=== PATIENT | female | born 1990 | race Two or more races ===

== ENCOUNTER 2025-02-06 08:50 | Emergency (ER) | payer MEDICAID, SELFPAY ==
[2025-02-06 09:00] VITALS: BP 146/84; PULSE 96; RESP 18; TEMP 36.7; O2SAT 96; BMI 31.2
--- NOTE | 2025-02-06 09:06 | XR_ITS ---
Examination: OB Transvaginal ultrasound of the pelvis, complete Technique: Transvaginal sonographic images pelvis performed using fraire scale imaging Exam date and time: February 06, 2025 at 0954 hours INDICATIONS: Vaginal bleeding today. Findings: Uterus 10.5 cm, pole 0.5 cm correspondences 6 weeks 1 day gestational age Cardiac motion 126 BPM Right ovary 2.3 cm arterial flow Left ovary obscured by bowel gas Impression: Viable intrauterine gestation 6 weeks 1 day
--- NOTE | 2025-02-06 09:10 | PD.EDPREG ---
ED OB Contraction Preg RMI/HPI General Chief complaint: OB/Uterine Contractions Stated complaint: PREG 2+ WKS, BLEEDING SINCE YESTERDAY Time Seen by Provider: 02/06/25 08:58 Arrival date/time: 02/06/25 08:50 34-year-old female presents to the emergency department today stating that she has been having vaginal bleeding since yesterday patient reports that she is . Patient does not know how far along she has. Patient reports no dysuria no fever no nausea no vomiting no back pain Limitations: no limitations Related Data Allergies Allergy/AdvReac Type Severity Reaction Status Date / Time No Known Allergies Allergy Verified 02/06/25 08:58 Review of Systems Review of Systems Systems Reviewed: All systems reviewed, normal except as documented Constitutional Constitutional: Reports system reviewed and no additional complaints, except as documented, Denies fever(s) and Denies headache(s) Eyes Eyes: Reports system reviewed and no additional complaints, except as documented and Denies blurry vision ENT Ears, Nose, Mouth, and Throat: Reports system reviewed and no additional complaints, except as documented, Denies headache(s), Denies nasal congestion and Denies nasal discharge Cardiovascular Cardiovascular: Reports system reviewed and no additional complaints, except as documented, Denies chest pain and Denies dyspnea Respiratory Respiratory: Reports system reviewed and no additional complaints, except as documented, Denies chest congestion, Denies cough and Denies dyspnea Gastrointestinal Gastrointestinal: Reports system reviewed and no additional complaints, except as documented and Denies abdominal pain Genitourinary Genitourinary: Reports system reviewed and no additional complaints, except as documented and Reports abnormal vaginal bleeding Integumentary/Breasts Skin/Breast: Reports system reviewed and no additional complaints, except as documented and Denies rash Neurologic Neurologic: Reports system reviewed and no additional complaints, except as documented, Reports as per HPI and Denies headache(s) Past Medical History Social History SMOKING STATUS: Never smoker ED Exam General Limitations: Present no limitations General appearance: Present alert and in no apparent distress Head Head exam: Present atraumatic Eye Eye exam: Present normal appearance, PERRL and EOMI ENT ENT exam: Present normal exam, normal oropharynx and mucous membranes moist Neck Neck exam: Present normal inspection, full ROM and trachea midline Chest Chest inspection: Present normal inspection and symmetric chest wall rise Respiratory Respiratory exam: Present normal lung sounds bilaterally Cardiovascular Cardiovascular exam: Present regular rate, normal rhythm and normal heart sounds Abdominal Exam Abdominal exam: Present soft and normal bowel sounds; Absent distention, tenderness, guarding, rebound or rigidity Extremities Exam Extremities exam: Present normal inspection and full ROM Back Exam Back exam: Present normal inspection and full ROM Neurological Exam Neurological exam: Present alert, oriented X3 and CN II-XII intact Psychiatric Psychiatric exam: Present normal affect and normal mood Skin Skin exam: Present warm, dry, intact and normal color Course Quality Measures none Orders Category Date Time Status US OB transvaginal Stat Exams 02/06/25 09:06 Completed ABO/RH Type Stat Lab 02/06/25 09:20 Completed Beta HCG,Quantitative Stat Lab 02/06/25 09:20 Completed CBC Stat Lab 02/06/25 09:20 Completed Comprehensive Metabolic Panel Stat Lab 02/06/25 09:20 Completed Vital Signs Vital signs: Vital Signs Temperature 98.1 F 02/06/25 09:00 Pulse Rate 96 02/06/25 09:00 Respiratory Rate 18 02/06/25 09:00 Blood Pressure 146/84 H 02/06/25 09:00 Pulse Oximetry (%) 96 02/06/25 09:00 Oxygen Delivery Method Room Air 02/06/25 09:00 o2 sat 96% r.a wnl OB/Uterine Contractions MDM Narrative MDM Narrative:: 34-year-old female presents to the emergency department today stating that she has been having vaginal bleeding since yesterday patient reports that she is . Patient does not know how far along she has. Patient reports no dysuria no fever no nausea no vomiting no back pain On exam patient well-appearing patient does not appear ill or toxic in no acute distress Patient has soft nontender abdomen Lab work and imaging obtained no acute emergent findings noted Patient instructed to follow-up with [facility] [employer] [facility] as soon as possible for worsening symptoms return immediately Patient data External records reviewed:: [facility] previous records Clinical information provided by:: patient Social determinants that could affect healthcare access:: none Patient has the following chronic illnesses:: None How is presenting disease/condition affected by chronic disease/condition?: no chronic disease Evaluation data The following diagnostics were reviewed and interpreted by me:: lab results and radiology exam(s) Lab and/or radiology exams considered but not ordered:: Lab and radiology obtained Interpretation Summary: Reviewed by me Medications / Prescriptions Medications or Prescriptions considered but not ordered:: Given no meds Medication administrations:: No meds Consultations Consultation(s) initiated? (list below): No Diagnosis OB Contractions Differential Diagnosis: other (Threatened , missed ) Most likely diagnosis given after review of the tests above:: Bleeding early Admission Indicated Admission indicated?: not indicated Explain why admission is indicated or not indicated:: No criteria Admission Request Was there a request for admission?: No Disposition Plan Disposition Plan: Discharge Discharge Attestation Discharge Attestation: The patient and all family members were given an opportunity to ask questions and understood the discharge instructions. Discharge instructions specifically effects, indications for sooner follow up or return to the emergency department, and the expected course of current diagnosis. Patient condition: Stable Discharge Plan Plan Patient Disposition: HOME (Self Care) Discharge Disposition comment: Stable Prescriptions/Referrals Referrals: Jos Miller MD [Primary Care Provider] - 02/07/25 Problem List Clinical Impression: Vaginal bleeding affecting early Patient/Caregiver Discharge Instructions Education Materials: Bleeding During Early Additional Instructions: Please follow up with your primary care doctor in the next 24-48hrs for any worsening symptoms return here immediately Print Language: Latvian Stand Alone Forms: Kimi Award Info., Patient Portal Info Letter PA/WILBERTO Supervising Physician MARY ANN/WILBERTO Supervising Physician: Dr. jensen
[2025-02-06 09:34] LABS: Basophils # (Auto) 0.1 Thou/mm3 (0.0-0.2); Basophils % (Auto) 1 % (0-2.5); Eosinophils # (Auto) 0.1 Thou/mm3 (0.0-0.5); Eosinophils % (Auto) 1 % (0-10); Hematocrit 38.9 % (36.0-46.0); Hemoglobin 13.1 g/dL (12.0-16.0); Immature Granulocytes % (Auto) 0 % (0-0); Immature Granulocytes Auto 0.03 Thou/mm3 (0.00-0.00); Lymphocytes # (Auto) 2.1 Thou/mm3 (1.0-4.8); Lymphocytes % (Auto) 22 % (10-50); Mean Corpuscular HGB Conc 33.7 g/dl (31.0-37.0); Mean Corpuscular Hemoglobin 30.4 pg (25.0-35.0); Mean Corpuscular Volume 90 fL (80-100); Monocytes # (Auto) 0.8 Thou/mm3 (0.0-0.8); Monocytes % (Auto) 8 % (0-12); Neutrophils # (Auto) 6.4 Thou/mm3 (1.8-7.7); Neutrophils % (Auto) 68 % (37-80); Nucleated Red Blood Cell % 0 /100 WBC (0); Platelet Count 247 Thou/mm3 (140-440); RDW Standard Deviation 42.3 fL (36.4-46.3); Red Blood Count 4.31 Miln/mm3 (4.00-5.20); White Blood Count 9.4 Thou/mm3 (3.6-11.0)
[2025-02-06 09:59] LABS: Alanine Aminotransferase 36 U/L (10-49); Albumin, Serum 4.1 gm/dL (3.5-5.0); Albumin/Globulin Ratio 1.4 (1.2-2.2); Alkaline Phosphatase 61 U/L (46-116); Anion Gap 6 (7-16); Aspartate Amino Transferase 24 U/L (0-34); BUN/Creatinine Ratio 10 Ratio (12-20); Bilirubin,Total 0.6 mg/dL (0.3-1.2); Blood Urea Nitrogen 8 mg/dL (9-23); Calcium 9.1 mg/dL (8.3-10.6); Calcium (Corrected) 9.1 mg/dL (8.5-10.1); Carbon Dioxide 24.6 mMol/L (20.0-31.0); Chloride 106 mMol/L (98-107); Creatinine (Component) 0.8 mg/dL (0.6-1.3); Estimated Creatinine Clearance 98.3 mL/min (>60); Globulin 2.9 gm/dL (2.3-3.5); Glucose 120 mg/dL (74-106); Osmolality,Calculated 273 (275-295); Potassium 4.1 mMol/L (3.4-5.1); Sodium 137 mMol/L (136-145); eGFR > 60 See Note
[2025-02-06 10:28] LABS: Beta HCG,Quantitative 34688 mIU/mL (<5.0)
[2025-02-06 11:05] VITALS: PULSE 62; RESP 18; TEMP 36.6; O2SAT 99
== END 2025-02-06 11:06 | disposition home or self-care (01) ==
PROVIDERS: Nurse Practitioner Primary Care; Emergency Provider Family Medicine; PCP Family Medicine
DX: O20.9 Hemorrhage in early pregnancy, unspecified (principal); Z3A.00 Weeks of gestation of pregnancy not specified
CPT/HCPCS: 36415; 76817; 80053; 84702; 85025; 86900; 86901; 99284